=== PATIENT | male | born 1945 | race Caucasian/White ===

== ENCOUNTER 2019-12-04 21:50 | Outpatient (CLI) | payer MEDICARE, BC | END 2019-12-04 21:51 | disposition short-term general hospital (02) | LOC: EMS 21:50 | PROVIDERS: ATTEND Surgery | DX: R55 Syncope and collapse (principal); R46.4 Slowness and poor responsiveness | CPT/HCPCS: A0425; A0427 ==

== ENCOUNTER 2020-04-27 21:54 | Outpatient (CLI) | payer MEDICARE, BC | END 2020-04-27 21:55 | disposition EMS.NT | LOC: EMS 21:54 | PROVIDERS: ATTEND Surgery | DX: R55 Syncope and collapse (principal) ==

== ENCOUNTER 2021-09-25 09:17 | Day surgery (SDC) | payer MEDICARE, BC, OTHER ==
[~2021-09-25 09:17] MED LIST: CYCLOPENTOLATE 1% OPHTH DROPS 2 ML ONE; KETOROLAC 0.45% OPHTH DROPS ONE; PHENYLEPHRINE 2.5% OPHTH 2 ML DROPS ONE; PROPARACAINE 0.5% OPHTH DROPS 15 ML ONE
[2021-09-25] MEDS ORDERED: LACTATED RINGERS 1,000 ML IV ONE (10:42)
--- NOTE | 2021-09-25 11:25 | ANESTHESIA ---
Pre-Anesthesia VS, & Labs - Diagnosis left eye senile combined cataract - Procedure left eye cataract extraction with IOL implant Vital Signs: Temp Pulse Resp BP Pulse Ox 36.5 C 86 16 114/68 98 09/25/21 10:43 09/25/21 10:43 09/25/21 10:43 09/25/21 10:43 09/25/21 10:43 Height: 5 ft 10 in Weight (kg): 87 kg Body Mass Index: 27.5 BMI Classification: Overweight - NPO >8 hours Home Medications and Allergies Home Medications: Ambulatory Orders Bimatoprost 0.01% Ophth Dops [Lumigan 0.01% Ophth Drops] 1 drops EACHEYE DAILY 09/25/21 Brimonidine 0.15% Ophth Drops [Alphagan P 0.15% Ophth Drops] 1 drops OPTH BID 09/25/21 Lisinopril [Zestril] 10 mg PO DAILY 09/25/21 Bimatoprost 0.01% Ophth Dops [Lumigan 0.01% Ophth Drops] 1 drops EACHEYE DAILY 09/25/21 Brimonidine 0.15% Ophth Drops [Alphagan P 0.15% Ophth Drops] 1 drops OPTH BID 09/25/21 Lisinopril [Zestril] 10 mg PO DAILY 09/25/21 Allergies/Adverse Reactions: Allergies Allergy/AdvReac Type Severity Reaction Status Date / Time [id number] Reductase AdvReac Unknown Verified 09/25/21 11:25 Inhibitor Anes History & Medical History - Anesthetic History Anesthesia Complications: reports: No previous complications - Medical History Cardiovascular: reports: Hypertension Pulmonary: reports: None Gastrointestinal: reports: None Urinary: reports: None 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) Musculoskeletal: reports: None Endocrine/Autoimmune: reports: None Blood Disorders: reports: None Skin: reports: Eczema Smoking Status: Never smoker Psychosocial: reports: Depression, Anxiety History of Cancer?: No - Surgical History General: reports: Colonoscopy, Other (hernia repair) Eyes Ears Nose Throat (EENT): reports: Tonsil/Adenoidectomy Exam General: Alert, Oriented x3, Cooperative, No acute distress Dental: WNL Mouth Openin Fingerbreadth Neck Mobility: Normal Mallampati classification: III Thyromental Distance: 4-6 cm Mental/Cognitive Status: Alert/Oriented X3, Normal for patient Plan Anesthesia Type: MAC Consent for Procedure(s) Verified and Reviewed: Yes Code Status: Attempt Resuscitation ASA classification: 2-Mild systemic disease Is this case an emergency?: No
[2021-09-25] MEDS ORDERED: BRIMONIDINE 0.2% OPHTH DROPS 5 ML OPTH ONE (12:08)
[2021-09-25] MEDS ORDERED: EPINEPHrine 1 MG/ML AMP IR ONE (12:08)
[2021-09-25] MEDS ORDERED: TIMOLOL 0.5% OPHTH DROPS OPTH ONE (12:08)
[2021-09-25] MEDS ORDERED: TRIAMCIN/MOXIFLOX OPHTHALMIC 0.6 ML VIAL IO ONE ×2 (12:09→12:37)
[2021-09-25] MEDS ORDERED: BSS/LIDOCAINE/EPINEPHRINE 1 ML SYRINGE IO ONE (12:09)
[2021-09-25] MEDS ORDERED: MIDAZOLAM 2 MG/2 ML VIAL ONE (12:09)
[2021-09-25] MEDS ORDERED: VANCOMYCIN OPHTHALMI 8MG/0.8ML 8 MG/0.8 ML SYRINGE IO ONE (12:10)
[2021-09-25] MEDS ORDERED: PROPARACAINE 0.5% OPHTH DROPS 15 ML EACHEYE ONE (12:10)
--- NOTE | 2021-09-25 12:19 | OPERATIVE REPORT ---
Operative Report - Other Other Information/Narrative: Date of Surgery: 09/25/21 Preop Dx: Visually significant cataract left eye. This was the first cataract surgery. Postop Dx: Same Procedure: Phacoemulsification with posterior chamber intraocular lens implant left eye Surgeon: Dr. Eloy Smiley Anesthesia: Monitored anesthesia care Complications: None Operative Indications: This is a 76-year-old M with progressive vision loss in the left eye due to 3+ nuclear sclerotic, 1-2+ cortical, and trace posterior subcapsular cataract. Best corrected visual acuity was 20/50 with glare to 20/100 vision in the left eye. Indications for surgery were: - Overall decrease in vision - Difficulty seeing words on a computer screen - Difficulty reading - Difficulty seeing words, closed captions, or game scores on TV - Difficulty seeing street signs - Difficulty driving in low light or at night - Difficulty driving at night because of headlights from other vehicles - Difficulty with glare or bright lights in any situation - Decreased acuity with firearms The patient was consented at length concerning the risks and benefits of cataract surgery after which the patient expressed a desire to proceed with surgery. Operative Procedure: The patient was taken into OR#3 and placed under monitored anesthesia care. A surgical time-out was conducted confirming correct patient, correct procedure, and correct surgical site. The patient was given topical anesthesia and then prepped and draped in the usual sterile fashion. The eye was entered at the 6 and 3 oclock positions. Intracameral Shugarcaine was injected into the anterior chamber followed by a dispersive viscoelastic. A continuous-tear curvilinear capsulorhexis was performed. The nucleus was hydrodissected and phacoemulsified. The cortex was evacuated using automated infusion and aspiration. A cohesive viscoelastic was injected into the capsular bag and a 22.0 diopter intraocular lens was inserted into the bag. Infusion and aspiration were used to evacuate the viscoelastic materials from the eye. The wounds were hydrated and the eye inflated to physiologic pressure using balanced salt solution. Approximately 0.25ml of a mixture of triamcinolone and moxifloxacin was injected trans-sclerally into the vitreous in the inferote mporal quadrant using a 30 gauge cannula. An additional 0.55ml of a mixture of triamcinolone, moxifloxacin, and vancomycin was injected subconjunctivally in the superior quadrant for infection and inflammation prophylaxis. Wound integrity was checked with Weck-Nellie sponges. The patient was taken from the operating room in good condition and given post-op instructions.
[2021-09-25] MEDS ORDERED: LACTATED RINGERS 600 ML IV ONE (12:20)
[2021-09-25] MEDS ORDERED: fentaNYL 100 MCG/2 ML VIAL ONE (12:24)
[2021-09-25 12:31] VITALS: BP 127/59
--- NOTE | 2021-09-25 12:33 | ANESTHESIA POST OP EVALUATION ---
Anesthesia Post Eval - Post Anesthesia Eval Vitals: Last Vital Signs Temp 37.1 C 09/25/21 12:17 Pulse 70 09/25/21 12:30 Resp 16 09/25/21 12:30 BP 127/59 L 09/25/21 12:30 Pulse Ox 96 09/25/21 12:30 CV Function Including HR & BP: Stable Pain Control: Satisfactory Nausea & Vomiting: Negative Mental Status: Baseline Respiratory Status: Airway Patent Hydration Status: Satisfactory Anesthesia Complications: None
[2021-09-25] MEDS ORDERED: TIMOLOL 0.5% OPHTH DROPS ONE (12:37)
[2021-09-25] MEDS ORDERED: BSS/LIDOCAINE/EPINEPHRINE 1 ML VIAL ONE (12:37)
[2021-09-25] MEDS ORDERED: BRIMONIDINE 0.2% OPHTH DROPS 5 ML ONE (12:37)
== END 2021-09-25 09:18 | disposition home or self-care (01) ==
LOC: SDS 09:17
PROVIDERS: ATTEND Ophthalmology
DX: H25.812 Combined forms of age-related cataract, left eye (principal); I10 Essential (primary) hypertension; Z79.899 Other long term (current) drug therapy
CPT/HCPCS: 66984; A9270; J3490; J7120

== ENCOUNTER 2022-11-19 07:22 | Day surgery (SDC) | payer MEDICARE, BC, OTHER ==
--- NOTE | 2022-11-19 07:14 | ANESTHESIA ---
Pre-Anesthesia VS, & Labs - Diagnosis R senile combined cataract - Procedure R extraction cataract w/IOL Height: 5 ft 10 in - NPO >8 hours - Lab Results Lab results reviewed: Yes Home Medications and Allergies Home Medications: Ambulatory Orders Apixaban [Eliquis] 0 mg PO BID 11/18/22 Gabapentin [Neurontin] 300 mg PO HS 11/18/22 Nitroglycerin [Nitrostat] 0.4 mg SL ONCE 11/18/22 dilTIAZem HCL [Diltiazem 24Hr ER (LA)] 120 mg PO DAILY 11/18/22 Bimatoprost 0.01% Ophth Dops [Lumigan 0.01% Ophth Drops] 1 drops EACHEYE DAILY 09/25/21 Brimonidine 0.15% Ophth Drops [Alphagan P 0.15% Ophth Drops] 1 drops OPTH BID 09/25/21 Lisinopril [Zestril] 10 mg PO BID 09/25/21 Apixaban [Eliquis] 0 mg PO BID 11/18/22 Gabapentin [Neurontin] 300 mg PO HS 11/18/22 Nitroglycerin [Nitrostat] 0.4 mg SL ONCE 11/18/22 dilTIAZem HCL [Diltiazem 24Hr ER (LA)] 120 mg PO DAILY 11/18/22 Allergies/Adverse Reactions: Allergies Allergy/AdvReac Type Severity Reaction Status Date / Time [id number] Reductase AdvReac Unknown Verified 09/25/21 11:25 Inhibitor Anes History & Medical History - Anesthetic History Anesthesia Complications: reports: No previous complications Family history of Anesthesia Complications: Denies Family history of Malignant Hyperthermia: Denies - Medical History Cardiovascular: reports: Hypertension Pulmonary: reports: None Gastrointestinal: reports: None Urinary: reports: None 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) Musculoskeletal: reports: None Endocrine/Autoimmune: reports: None Blood Disorders: reports: None Skin: reports: Eczema Smoking Status: Never smoker - Surgical History General: reports: Colonoscopy, Other Eyes Ears Nose Throat (EENT): reports: Cataracts, Tonsil/Adenoidectomy Exam General: Alert, Oriented x3, Cooperative Dental: WNL Mouth Openin Fingerbreadth Neck Mobility: Normal Mallampati classification: II Thyromental Distance: 4-6 cm Respiratory: Lungs clear, Normal breath sounds Cardiovascular: Regular rate Neurological: Normal speech Mental/Cognitive Status: Alert/Oriented X3, Normal for patient Cognitive Status: Within normal limits Plan Anesthesia Type: MAC Consent for Procedure(s) Verified and Reviewed: Yes Code Status: Attempt Resuscitation ASA classification: 2-Mild systemic disease Is this case an emergency?: No
[2022-11-19] MEDS ORDERED: LACTATED RINGERS 1,000 ML IV ONE (07:23)
[2022-11-19] MEDS ORDERED: MIDAZOLAM 2 MG/2 ML VIAL ONE (07:45)
[2022-11-19] MEDS ORDERED: TRIAMCIN/MOXIFLOX OPHTHALMIC 0.6 ML VIAL IO ONE ×2 (07:58→08:04)
[2022-11-19] MEDS ORDERED: VANCOMYCIN OPHTH (TOPICAL) 10 MG/ML SYRINGE ONE (07:58)
[2022-11-19] MEDS ORDERED: TIMOLOL 0.5% OPHTH DROPS ONE (07:58)
[2022-11-19] MEDS ORDERED: BSS/LIDOCAINE/EPINEPHRINE 1 ML VIAL ONE (07:58)
[2022-11-19] MEDS ORDERED: EPINEPHrine 1 MG/ML AMP ONE (07:58)
[2022-11-19] MEDS ORDERED: BRIMONIDINE 0.2% OPHTH DROPS 5 ML ONE (07:58)
[2022-11-19] MEDS ORDERED: BRIMONIDINE 0.2% OPHTH DROPS 5 ML OPTH ONE (08:03)
[2022-11-19] MEDS ORDERED: EPINEPHrine 1 MG/ML AMP IR ONE (08:03)
[2022-11-19] MEDS ORDERED: TIMOLOL 0.5% OPHTH DROPS OPTH ONE (08:04)
[2022-11-19] MEDS ORDERED: BSS/LIDOCAINE/EPINEPHRINE 1 ML SYRINGE IO ONE (08:04)
[2022-11-19] MEDS ORDERED: PROPARACAINE 0.5% OPHTH DROPS 15 ML EACHEYE ONE (08:05)
[2022-11-19] MEDS ORDERED: VANCOMYCIN OPHTH (TOPICAL) 10 MG/ML SYRINGE TOP ONE (08:05)
[2022-11-19] MEDS ORDERED: LACTATED RINGERS 700 ML IV ONE (08:28)
--- NOTE | 2022-11-19 08:32 | OPERATIVE REPORT ---
Operative Report - Other Other Information/Narrative: Date of Surgery: 11/19/22 Preop Dx: Visually significant cataract right eye. Cataract surgery was performed in the left eye on [id number]. Postop Dx: Same Procedure: Phacoemulsification with posterior chamber intraocular lens implant right eye Surgeon: Dr. Eloy Smiley Anesthesia: Monitored anesthesia care Complications: None Operative Indications: This is a 77-year-old M with progressive vision loss in the right eye due to 4+ nuclear sclerotic, 2+ cortical, and vacuolar cataract. Best corrected visual acuity was 20/40 with glare to 20/125 vision in the right eye. Indications for surgery were: - Overall decrease in vision - Difficulty seeing words on a computer screen - Difficulty reading - Difficulty seeing words, closed captions, or game scores on TV - Difficulty seeing street signs - Difficulty driving in low light or at night - Difficulty driving at night because of headlights from other vehicles - Difficulty with glare or bright lights in any situation The patient was consented at length concerning the risks and benefits of cataract surgery after which the patient expressed a desire to proceed with surgery. Operative Procedure: The patient was taken into OR#3 and placed under monitored anesthesia care. A surgical time-out was conducted confirming correct patient, correct procedure, and correct surgical site. The patient was given topical anesthesia and then prepped and draped in the usual sterile fashion. The eye was entered at the 6 and 3 oclock positions. Intracameral Shugarcaine was injected into the anterior chamber followed by a dispersive viscoelastic. A continuous-tear curvilinear capsulorhexis was performed. The nucleus was hydrodissected and phacoemulsified. The cortex was evacuated using automated infusion and aspiration. A cohesive viscoelastic was injected into the capsular bag and a 21.0 diopter intraocular lens was inserted into the bag. Infusion and aspiration were used to evacuate the viscoelastic materials from the eye. The wounds were hydrated and the eye inflated to physiologic pressure using balanced salt solution. Approximately 0.25ml of a mixture of triamcinolone and moxifloxacin was injected trans-sclerally into the vitreous in the inferotemporal quadrant using a 30 gauge cannula. An additional 0.25ml of a mixture of triamcinolone and moxifloxacin was injected subconjunctivally in the superior quadrant for infection and inflammation prophylaxis. Wound integrity was checked with Weck-Nellie sponges. The patient was taken from the operating room in good condition and given post-op instructions.
--- NOTE | 2022-11-19 08:34 | ANESTHESIA POST OP EVALUATION ---
Anesthesia Post Eval - Post Anesthesia Eval Vitals: Last Vital Signs Temp 36.4 C L 11/19/22 08:25 Pulse 76 11/19/22 08:25 Resp 16 11/19/22 08:25 BP 115/60 11/19/22 08:25 Pulse Ox 98 11/19/22 08:25 O2 Flow Rate CV Function Including HR & BP: Stable Pain Control: Satisfactory Nausea & Vomiting: Negative Mental Status: Baseline Respiratory Status: Airway Patent Hydration Status: Satisfactory Anesthesia Complications: None
[2022-11-19 08:51] VITALS: BP 107/67
== END 2022-11-19 07:23 | disposition home or self-care (01) ==
LOC: SDS 07:22
PROVIDERS: ATTEND Ophthalmology
DX: H25.811 Combined forms of age-related cataract, right eye (principal); I10 Essential (primary) hypertension; Z98.42 Cataract extraction status, left eye
CPT/HCPCS: 66984; A9270; J3490; J7120

== ENCOUNTER 2023-01-30 10:07 | Outpatient (CLI) | payer MEDICARE, BC, OTHER | END 2023-01-30 23:59 | disposition critical access hospital (66) | LOC: EMS 10:07 | DX: R10.30 Lower abdominal pain, unspecified (principal) | CPT/HCPCS: A0425; A0429 ==

== ENCOUNTER 2023-01-30 10:29 | Inpatient (IN) | payer MEDICARE, BC, OTHER ==
[2023-01-30 11:19] LABS: BASOPHILS % (AUTO) 0.3 %; EOSINOPHILS # (AUTO) 0.1 10^3/uL (0.0-0.7); EOSINOPHILS % (AUTO) 0.8 %; HCT - HEMATOCRIT 41.2 % (42.0-52.0); HGB - HEMOGLOBIN 13.9 g/dL (14.0-18.0); LYMPHOCYTES # (AUTO) 1.2 10^3/uL (1.5-3.5); LYMPHOCYTES % (AUTO) 10.5 %; MEAN CORPUSCULAR HEMOGLOBIN 30.7 pg (27.0-31.0); MEAN CORPUSCULAR HGB CONC 33.7 g/dL (32.0-36.0); MEAN CORPUSCULAR VOLUME 90.9 fL (80.0-94.0); MEAN PLATELET VOLUME 9.6 fL (7.4-11.4); MONOCYTES # (AUTO) 0.8 10^3/uL (0.0-1.0); NEUTROPHILS # (AUTO) 9.3 10^3/uL (1.5-6.6); NEUTROPHILS % (AUTO) 81.1 %; PLT - PLATELET COUNT 224 10^3/uL (130-450); RED BLOOD COUNT 4.53 10^6/uL (4.70-6.10); RED CELL DISTRIBUTION WIDTH 12.3 % (12.0-15.0); WHITE BLOOD COUNT 11.5 x10^3/uL (4.8-10.8)
[2023-01-30 11:33] LABS: ALBUMIN/GLOBULIN RATIO 1.4 (1.0-2.2); BILIRUBIN,TOTAL 0.8 mg/dL (0.2-1.0); CALCIUM 9.2 mg/dL (8.5-10.3); CREATININE 1.1 mg/dL (0.6-1.3); TOTAL PROTEIN 6.8 g/dL (6.4-8.9)
[2023-01-30 11:39] LABS: TROPONIN I HIGH SENSITIVITY 5.4 ng/L (2.3-19.7)
--- NOTE | 2023-01-30 11:43 | ED Physician Documentation ---
PD HPI ABD PAIN - Stated complaint Stated Complaint: LIGHT HEADED/ABD PX - Chief complaint Chief Complaint: Abd Pain - History obtained from History obtained from: Patient, Family - Additional information Additional information: This is a 77-year-old male with a past medical history of hypertension as well as atrial fibrillation on Eliquis who presents with 4 days of lower abdominal discomfort. On the initial day of his symptoms, he also had a syncopal episode that evening. The patient states that he went to use the bathroom and he later woke up on the floor. He is not sure what happened. His found him and he was feeling okay at that time so he went back to bed. He had no chest pain or difficulty breathing and he has not had any recurrent episodes of syncope or near syncope. Over the last several days, he has continued to have lower abdominal pain, bloating, nausea and poor p.o. intake. He has not had any vomiting or diarrhea, no constipation, no urinary symptoms. He has not had a fever. He last ate yesterday, ate a quite bland diet, plain raisin toast in the morning, Cheerios and afternoon, and playing grapes in the evening as he did not feel like he could tolerate anything else. He last had a bowel movement yesterday, it was soft so this is not uncommon for him, he denies any constipation or straining. He denies any atypical food or water sources, he did travel to [place] though that has been several months ago and he had no GI issues while he was there. He does have a history of a hernia repair as a child but no other abdominal surgeries. Review of Systems Constitutional: reports: Reviewed and negative Eyes: reports: Reviewed and negative Ears: reports: Reviewed and negative Nose: reports: Reviewed and negative Throat: reports: Reviewed and negative Cardiac: reports: Reviewed and negative Respiratory: reports: Reviewed and negative GI: reports: Abdominal Pain, Abdominal Swelling, Nausea. denies: Vomiting, Constipation, Diarrhea, Hematemesis, Bloody / black stool : reports: Reviewed and negative Skin: reports: Reviewed and negative Musculoskeletal: reports: Reviewed and negative Neurologic: reports: Generalized weakness, Syncope. denies: Focal weakness, Numbness, Difficulty speaking, Near syncope, Seizure, Confused, Altered mental status, Unresponsive, Headache, Head injury Psychiatric: reports: Reviewed and negative Endocrine: reports: Reviewed and negative PD PAST MEDICAL HISTORY - Past Medical History Past Medical History: Yes Cardiovascular: Hypertension, Atrial fibrillation Respiratory: None Neuro: Other Endocrine/Autoimmune: None GI: None : None HEENT: Chronic vision loss, Glaucoma Musculoskeletal: None Derm: Eczema - Past Surgical History General: Colonoscopy, Other HEENT: Cataracts, Tonsil/Adenoidectomy - Present Medications Home Medications: Ambulatory Orders Medication Instructions Recorded Confirmed Bimatoprost 0.01% Ophth Dops 1 drops EACHEYE DAILY 09/25/21 11/19/22 [Lumigan 0.01% Ophth Drops] Brimonidine 0.15% Ophth Drops 1 drops OPTH BID 09/25/21 11/18/22 [Alphagan P 0.15% Ophth Drops] Lisinopril [Zestril] 10 mg PO BID 09/25/21 11/19/22 Apixaban [Eliquis] 0 mg PO BID 11/18/22 11/19/22 Gabapentin [Neurontin] 300 mg PO HS 11/18/22 11/18/22 Nitroglycerin [Nitrostat] 0.4 mg SL ONCE 11/18/22 11/19/22 dilTIAZem HCL [Diltiazem 24Hr ER 120 mg PO DAILY 11/18/22 11/18/22 (LA)] - Allergies Allergies/Adverse Reactions: Allergies Allergy/AdvReac Type Severity Reaction Status Date / Time [id number] Reductase AdvReac Unknown Verified 09/25/21 11:25 Inhibitor - Social History Does the pt smoke?: No Smoking Status: Never smoker PD ED PE NORMAL - Vitals Vital signs reviewed: Yes - General General: Alert and oriented X 3, No acute distress, Well developed/nourished - HEENT HEENT: Atraumatic, Moist mucous membranes, Pharynx benign - Neck Neck: Supple, no meningeal sign, No JVD - Cardiac Cardiac: RRR, No murmur, No gallop, No rub, Strong equal pulses - Respiratory Respiratory: No respiratory distress, Clear bilaterally - Abdomen Abdomen: Other (Lower abdominal tenderness, no other abdominal tenderness. 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 Relevant findings are: Rate: Rate (enter#) (75) Rhythm: NSR Mcdaniel: Normal Intervals: Normal FL QRS: Normal Ischemia: ST elevation c/w repol Compare to prior EKG: Old EKG unavailable Computer interpretation: Agree with computer - Labs Labs: Laboratory Tests 01/30/23 01/30/23 01/30/23 11:05 11:05 13:24 WBC 11.5 H RBC 4.53 L Hgb 13.9 L Hct 41.2 L MCV 90.9 MCH 30.7 MCHC 33.7 RDW 12.3 Plt Count 224 MPV 9.6 Neut # (Auto) 9.3 H Lymph # (Auto) 1.2 L [place] # (Auto) 0.8 Eos # (Auto) 0.1 Baso # (Auto) 0.0 Absolute Nucleated RBC 0.00 Nucleated RBC % 0.0 Sodium 132 L Potassium 4.0 Chloride 101 Carbon Dioxide 28 Anion Gap 3.0 L BUN 11 Creatinine 1.1 Estimated GFR (MDRD) 65 L Glucose 104 Calcium 9.2 Total Bilirubin 0.8 AST 20 ALT 21 Alkaline Phosphatase 62 Troponin I High Sens 5.4 Total Protein 6.8 Albumin 4.0 Globulin 2.8 Albumin/Globulin Ratio 1.4 Lipase 23 Urine Color YELLOW Urine Clarity CLEAR Urine pH 6.5 Ur Specific [place] <=1.005 Urine Protein NEGATIVE Urine Glucose (UA) NEGATIVE Urine Ketones 15 H Urine Occult Blood NEGATIVE Urine Nitrite NEGATIVE Urine Bilirubin NEGATIVE Urine Urobilinogen 0.2 (NORMAL) Ur Leukocyte Esterase NEGATIVE Ur Microscopic Review NOT INDICATED Urine Culture Comments NOT INDICATED 01/30/23 13:25 WBC RBC Hgb Hct MCV MCH MCHC RDW Plt Count MPV Neut # (Auto) Lymph # (Auto) [place] # (Auto) Eos # (Auto) Baso # (Auto) Absolute Nucleated RBC Nucleated RBC % Sodium Potassium Chloride Carbon Dioxide Anion Gap BUN Creatinine Estimated GFR (MDRD) Glucose Calcium Total Bilirubin AST ALT Alkaline Phosphatase Troponin I High Sens 5.4 Total Protein Albumin Globulin Albumin/Globulin Ratio Lipase Urine Color Urine Clarity Urine pH Ur Specific [place] Urine Protein Urine Glucose (UA) Urine Ketones Urine Occult Blood Urine Nitrite Urine Bilirubin Urine Urobilinogen Ur Leukocyte Esterase Ur Microscopic Review Urine Culture Comments - Rads (name of study) No standard instances Relevant Findings:: Final report received PD Medical Decision Making - ED course Complexity details: reviewed results, re-evaluated patient, considered differential, d/w patient, d/w family, d/w economic consultant (Dr. Amaya) ED course: 77-year-old male presented with lower abdominal pain for the last 4 days. On arrival, he has stable vital signs and appears in no acute distress but does have some lower abdominal tenderness to palpation mild distention, but active bowel tones. We obtain labs to evaluate for possible colitis or diverticulitis or small bowel obstruction or UTI causing his symptoms. Labs are generally r eassuring, he has a white blood cell count of 11.5, hemoglobin of 13.9, sodium 132 and otherwise stable chemistry panel. His urinalysis is negative for infection. Patient continued to have discomfort therefore I recommended a CT to evaluate for other possible sources of his pain. CT reveals a small bowel obstruction with a transition point in the distal small bowel. I discussed these findings with patient and recommended bowel rest, and recommended that we place an NG tube and admit the patient for observation. The patient strongly resisted having NG tube stating that he had a severe gag reflex and requested that he be sedated for this procedure. We therefore have given him pain medication and previously for abdominal pain and also gave him 1 mg of Ativan in order to place an NG tube which is pending at this time. I discussed the case with Dr. Amaya, the on-call surgeon, who recommended that we admit the patient to the hospitalist service and he will consult and it plans to see the patient later today. Recommended IV fluids, bowel rest, and NG tube decompression. I have spoken with the hospitalist, Dr. Montenegro, and she has very kindly excepted this patient to her service for observation of a small bowel obstruction. Patient and updated on plans and agreeable to admission. Departure - Departure Disposition: ED Place in Observation Clinical Impression: Small bowel obstruction Discharge Date/Time: 01/30/23 14:50
[2023-01-30] MEDS ORDERED: ONDANSETRON 4 MG/2 ML VIAL IVP STA (12:07)
[2023-01-30] MEDS ORDERED: SODIUM CHLORIDE 0.9% 1,000 ML IV STA (12:07)
[2023-01-30] MEDS ORDERED: MORPHINE 2 MG/ML CARPUJECT IVP STA (13:07)
[2023-01-30] MEDS ORDERED: iohexoL-300 100 ML VIAL IVP ONE (13:24)
[2023-01-30 13:32] LABS: BILIRUBIN,URINE NEGATIVE (NEGATIVE); GLUCOSE, URINE (UA) NEGATIVE (NEGATIVE); KETONES,URINE (UA) 15 mg/dL (NEGATIVE); LEUKOCYTE ESTERASE, URINE NEGATIVE (NEGATIVE); NITRITE,URINE NEGATIVE (NEGATIVE); OCCULT BLOOD,URINE NEGATIVE (NEGATIVE); PH,URINE 6.5 PH (5.0-7.5); PROTEIN,URINE NEGATIVE (NEGATIVE); UROBILINOGEN,URINE 0.2 (NORMAL) E.U./dL (NORMAL)
[2023-01-30 13:33] LABS: CLARITY,URINE CLEAR (CLEAR)
--- NOTE | 2023-01-30 13:43 | CT Report ---
PROCEDURE: ABDOMEN/PELVIS W INDICATIONS: lower abd pain, colitis or diverticulitis? CONTRAST: 100ml omni 300 TECHNIQUE: After the administration of contrast, 5 mm thick sections acquired from the diaphragms to the symphys is. 5 mm thick coronal and sagittal reformats were acquired. For radiation dose reduction, the foll owing was used: automated exposure control, adjustment of mA and/or kV according to patient size. COMPARISON: 03/21/2012 FINDINGS: Image quality: Excellent. Lung bases and heart: Unremarkable. Liver: No solid mass. Gallbladder and biliary tree: 1 cm gallstone. No evidence of cholecystitis. Spleen: No splenomegaly. Pancreas: No pancreatic ductal dilation. Adrenals: No adrenal nodule. Kidneys and ureters: No hydronephrosis. No renal cystic lesion which requires follow up. No solid mas s. Simple cyst of the inferior pole of the right kidney. Bowel and peritoneum: The distal esophagus is normal. The stomach is distended with fluid and air. Th e duodenum, jejunum, and ileum are distended measuring up to 3.5 cm in diameter with air-fluid levels consistent with small bowel obstruction. Transition point is indeterminate but likely distal. The la rge bowel has a normal caliber with diverticulosis in the sigmoid colon. No evidence of acute diverti culitis. No free air or free fluid. Lymph nodes: No central or retroperitoneal adenopathy. Vessels: No infrarenal aortic aneurysm. PELVIS Reproductive organs: Unremarkable. Bladder: No abnormal wall thickening, accounting for underdistension. Pelvic lymph nodes: No pelvic adenopathy by size criteria. Bones: No aggressive osseous abnormality. Other: No significant ventral or inguinal hernia. IMPRESSION: Small bowel obstruction with a transition point in the distal small bowel. Reviewed by: Umesh Plascencia on 01/30/2023 1:41 PM PDT Approved by: Umesh Plascencia on 01/30/2023 1:41 PM PDT Station ID: [id number]
[2023-01-30] MEDS ORDERED: ONDANSETRON ODT 4 MG TABLET TL PRN (14:01)
[2023-01-30] MEDS ORDERED: MORPHINE 2 MG/ML CARPUJECT IVP PRN (14:01)
[2023-01-30] MEDS ORDERED: ONDANSETRON 4 MG/2 ML VIAL IVP PRN (14:01)
[2023-01-30] MEDS ORDERED: SODIUM CHLORIDE FLUSH 0.9% 10 ML SYRINGE IVP PRN (14:01)
[2023-01-30] MEDS ORDERED: LORazepam 2 MG/ML VIAL IVP STA (14:03)
[2023-01-30] MEDS ORDERED: ACETAMINOPHEN 1,000 MG/100 ML 1,000 MG/100 ML BAG IV PRN (14:04)
--- NOTE | 2023-01-30 14:09 | HISTORY & PHYSICAL EXAMINATION ---
Chief Complaint - Chief Complaint Chief Complaint: Abdominal pain for 4 days History of Present Illness - Admitted From Admitted From:: Home - History Obtained From Records Reviewed: [facility] History obtained from: [facility] Rachel Grigsby, Patient, and patient's Exam Limitations: None - History of Present Illness HPI Comment/Other: 77-year-old white male whose only past surgical history is that of a inguinal hernia repair when he was a child. Presents with less than a week of increasing abdominal pain, distention, nausea, anorexia. He is still passing gas, had a bowel movement yesterday. Last food was last night but he is eating less and less. He thought he just had a bug/stomach flu. When he was not getting any better he decided to come to the hospital. He denies chest pain, palpitations, shortness of breath. He denies fever, diaphoresis. No urgency, frequency, hematuria. No previous history of prostate problems or urinary obstruction. He does say that prior to this 4 days, however, he has been having diarrhea on a daily basis. Came from out of nowhere. He has had 2 previous colonoscopies. No polyps. He and his thought that it was either the flu bug or a diverticulosis issue and he had been changing to a bland diet and it was not working. No blood in the diarrhea.No weight changes, no change in appetite. In the emergency room temperature was 36.9. Heart rate 76. Blood pressure 124/78. Respirations 18. 96% on room air. He was an alert oriented white male. He is ambulating. Exam has him with a distended abdomen, hypoactive bowel sounds. Diffuse tenderness. CT of the abdomen and pelvis had a distended stomach with fluid and air. The duodenum, jejunum and ileum were also distended with air-fluid levels consistent with partial small bowel obstruction. Transition point indeterminate but likely distal. Large bowel was normal with diverticulosis in the sigmoid colon. No diverticulitis, no free air or free fluid. No adenopathy. Sodium is 132 otherwise CMP was normal. White cell count slightly elevated 11.5 with a hemoglobin of 13.9. He has no other previous CBCs to compare to. The ER provider discussed the case with general surgery, Dr. Amaya. He feels that this most likely will resolve without surgical intervention. He would like an NG placed, and the patient admitted to my service and he will consult. In discussing this with the ER provider I feel that is an appropriate request. And as such I will place the patient in observation. It is a partial small bowel obstruction in that he still passing gas, and no vomiting. He is followed by the [place] [facility], Ayla Self MD who is in [place]. Tele Tech is Joe Bardales for his chronic atrial fibrillation. And he sees a Dr. Longoria, [facility] neurology in [place] for postpolio syndro me symptoms. His postpolio symptoms consist of difficulty bringing up his left leg. Lifelong history of feeling like there is "a ashwini" shoved down his leg. Loss of balance. He has been losing functional mobility slowly but surely over the last few years. He starts panting now with prolonged physical exertion. He and his are trying to get his endurance up and they are up to 21 minutes with using a quad cane of nonstop movement. Nonstop movement could be anything such as standing, or walking in the house, or going to the grocery store. He is still able to feed himself, dress himself. He still drives a car since his right foot is unaffected. The only thing that is bothering him today is speech. He says that he can hear me, understand exactly what I am saying, but then processing it and getting it out of his mouth is difficult. He can see the word he wants to say, he could even write it down, but it comes out of his mouth the wrong way. 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 Mom is still alive at 98 and completely healthy. 1 brother, only sibling, at age 49 of heart attack. 3 children. 1 daughter was born sumi ture and only weighed 2-1/2 pounds. There is some residuals from premature but otherwise she has a PhD from [email or web address]. There are no other medical illnesses in his kids. Living arrangement: At home Living Situation: With spouse/s.o. Social History Notes: Born and raised in [place] because dad was a [place] man. 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 He is to his second for 31 years. He has 3 children with his first . He is in contact with his children and has close relationships with them. He used to smoke. Started teenage years. Quit about 30 years ago. Never smoked more than half a pack a day. Assuming he started smoking at 17 and stopped at 47 that was about 30 years of at most half a pack per day. He used to drink quite a bit when he was younger. Just gradually phased out of his life. No problems with alcohol abuse. Stop drinking completely 5 years ago. No special reason. No history of recreational substance abuse. - Substance History Use: Uses substance without health or social issues: NONE Abuse: Recurrent use of substance despite neg consequences: NONE Dependence: Experiences withdrawal or developed tolerances: NONE - POLST Patient has POLST: No POLST Status: Full Code Meds/Allgy - Home Medications Home Medications: Ambulatory Orders Medication Instructions Recorded Confirmed Bimatoprost 0.01% Ophth Dops 1 drops EACHEYE DAILY 09/25/21 11/19/22 [Lumigan 0.01% Ophth Drops] Brimonidine 0.15% Ophth Drops 1 drops OPTH BID 09/25/21 11/18/22 [Alphagan P 0.15% Ophth Drops] Lisinopril [Zestril] 10 mg PO BID 09/25/21 11/19/22 Apixaban [Eliquis] 0 mg PO BID 11/18/22 11/19/22 Gabapentin [Neurontin] 300 mg PO HS 11/18/22 11/18/22 Nitroglycerin [Nitrostat] 0.4 mg SL ONCE 11/18/22 11/19/22 dilTIAZem HCL [Diltiazem 24Hr ER 120 mg PO DAILY 11/18/22 11/18/22 (LA)] - Allergies Allergies/Adverse Reactions: Allergies Allergy/AdvReac Type Severity Reaction Status Date / Time [id number] Reductase AdvReac Unknown Verified 09/25/21 11:25 Inhibitor Review of Systems - Constitutional Constitutional: denies: Fatigue, Fever, Chills, Malaise, Poor appetite, Weight gain, Weight loss - Eyes Eyes: reports: Blurred vision, Vision loss, Corrective lenses. denies: Pain, Irritation, Amaurosis - Ears, Nose & Throat Ears, Nose & Throat: reports: Hearing loss. denies: Ear pain, Hearing aids, Tinnitus, Vertigo, Nasal pain, Nasal discharge, Postnasal drainage, Sore throat, Hoarseness - Cardiovascular Cariovascular: reports: Irregular heart rate, Palpitations, Exertional dyspnea, Decr. exercise tolerance. denies: Chest pain, Edema, Syncope - Respiratory Respiratory: reports: SOB with exertion. denies: Cough, Sputum production, Wheezing, Snoring, SOB at rest - Gastrointestinal Gastrointestinal: reports: Abdominal pain, Abdominal distention, Diarrhea, Change in bowel habits, Nausea, Vomiting. denies: Rectal bleeding, Black stools, Bloody stools, [place]do blood emesis - Genitourinary Genitourinary: denies: Dysuria, Frequency, Urgency, Hematuria, Incontinence, Flank pain - Musculoskeletal Musculoskeletal: reports: Muscle aches, Stiffness, Muscle weakness (Left leg). denies: Muscle pain, Back pain, Gout, Joint pain - Integumentary Integumentary: reports: Rash (Eczema). denies: Pruritis, Lesions - Neurological Neurological: reports: Pre-existing deficit, Abnormal gait (Pre-existing). denies: General weakness, Focal weakness, Headache, Dizziness, Slurred speech - Psychiatric Psychiatric: denies: Depression, Anxiety, Suicidal - Endocrine Endocrine: reports: Intolerance to cold (That started and is attributed to postpolio syndrome. He is to be a very hot person where he could not take much eat but now he cannot take much cold). denies: Polyuria, Polydypsia, Polyphagia - Hematologic/Lymphatic Hematologic/Lymphatic: denies: Anemia, Bruising, Petechiae Prior Level of Functionality: Walks with a quad cane. Does not need help with dressing or feeding. Still drives a car. But mobility and gait have been affected over the last few years and getting worse. and he are 6 steadily trying to work on that. Exam - Vital Signs Reviewed Vital Signs: Yes Vital Signs: Vital Signs x48h Temp Pulse Resp BP Pulse Ox 01/30/23 12:39 72 14 139/76 H 99 01/30/23 10:36 36.9 C 76 18 124/78 96 - Physical Exam General Appearance: positive: No acute distress, Alert, Other (Pedantic 5 foot 10 inch male, 84.5 kg, some flaking along the nasolabial fold, hairline. Able to process what I am saying but occasionally having word finding difficulties to get the right word out and it makes him Exasperated) Eyes Bilateral: positive: PERRL, EOMI ENT: positive: No signs of dehydration Neck: positive: No JVD. negative: Stiff neck Respiratory: positive: No respiratory distress. negative: Wheezes, Rales, Rhonchi Cardiovascular: positive: Irregularly irregular. negative: Tachycardia Peripheral Pulses: positive: 1+ Abdomen: positive: Other (Diffusely distended, NG in place, low intermittent suction. Mild diffuse tenderness. Reducible umbilical hernia. No masses, no fluid wave.) Back: negative: Nml inspection, CVA tenderness (R) Skin: positive: Color nml, Warm, Dry Extremities: positive: Full ROM, No pedal edema Neurologic/Psychiatric: positive: Oriented x3, CN's nml (2-12), Motor nml Conclusion/Plan - Problem List (1) Partial small bowel obstruction Conclusion/Plan: CAT scan does not show any evidence of tumor or enteritis. There is a vague transition point. Not well identified. He does not have a fever but he does have an elevated white cell count. At this time general surgery feels that expectant management is in order. Previous surgical history is that of a simple hernia repair. No other major surgeries. Plan: Observation status IV fluids at 100 cc an hour Zofran OTD and IV as needed Morphine 2 mg every 2 hours as needed for pain Daily plain film of the abdomen to assess for air-fluid levels Daily BMP and CBC. General surgery consult No antibiotics at this time no antibiotics at this time. (2) Chronic atrial fibrillation Conclusion/Plan: He is rate controlled in the 70s. He is also anticoagulated. He is going to be n.p.o. Plan: Change anticoagulation to Lovenox 80 mg SQ twice daily Change rate lowering drug to Cardizem 5 mg IV push 3 times daily. To be held f or a pulse less than 60 Resume his oral Cardizem and Eliquis when he is able to take p.o. (3) Hypertension Conclusion/Plan: Blood pressure currently stable. Controlled. Systolic is 124, 139. I am resuming the Cardizem but I will do it IV push to rate control. With this I think his blood pressures stay controlled. Qualifiers: Hypertension type: primary hypertension Qualified Code(s): I10 - Essential (primary) hypertension - Lab Results Lab results reviewed: Yes Fish Bones: 01/30/23 11:05 01/30/23 11:05 - Diagnostic Imaging Results Diagnostic Imaging Results: positive: Final report reviewed Diagnostic Imaging Results Comments: See description of CT report and HPI - EKG Results EKG Interpreted Independently: No Core Measures - Anticipated LOS I expect patient to be DC'd or transferred within 96 hours.: Yes - DVT/VTE - Prophylaxis VTE/DVT Prophylaxis med ordered at admit?: Yes
[2023-01-30] MEDS: SODIUM CHLORIDE FLUSH 0.9% 10 ML SYRINGE IVP SCH (16:15)
[2023-01-30] MEDS: SODIUM CHLORIDE 0.9% 1,000 ML IV SCH (16:15)
--- NOTE | 2023-01-30 16:37 | CONSULTATION NOTE ---
Referring Provider Consult Date: 01/30/23 Chief Complaint - Chief Complaint Chief Complaint: admitted with abdominal pain and nausea History of Present Illness - History Obtained From Records Reviewed: yes History obtained from: pt Exam Limitations: none - History of Present Illness HPI Comment/Other: few days of abdominal pain, nausea, bloating. 1 diarrheal stool yesterday. small flatus today. history of " diverticulitis " x 2 over 10 years ago. seen in ed today. ct ? distal small bowel obstruction. surgery consulted only prior surgery inguinal hernia surgery as a child. History - Past Medical History Cardiovascular: reports: Hypertension, Atrial fibrillation Respiratory: reports: None Neuro: reports: Other Endocrine/Autoimmune: reports: None GI: reports: None : reports: None HEENT: reports: Chronic vision loss, Glaucoma Psych: reports: None Musculoskeletal: reports: None Derm: reports: Eczema MRSA Hx?: No - Past Surgical History General: reports: Colonoscopy, Other HEENT: reports: Cataracts, Tonsil/Adenoidectomy - Family & Social History Living arrangement: At home Meds/Allgy - Home Medications Home Medications: Ambulatory Orders Medication Instructions Recorded Confirmed Bimatoprost 0.01% Ophth Dops 1 drops EACHEYE DAILY 09/25/21 11/19/22 [Lumigan 0.01% Ophth Drops] Brimonidine 0.15% Ophth Drops 1 drops OPTH BID 09/25/21 11/18/22 [Alphagan P 0.15% Ophth Drops] Lisinopril [Zestril] 10 mg PO BID 09/25/21 11/19/22 Apixaban [Eliquis] 0 mg PO BID 11/18/22 11/19/22 Gabapentin [Neurontin] 300 mg PO HS 11/18/22 11/18/22 Nitroglycerin [Nitrostat] 0.4 mg SL ONCE 11/18/22 11/19/22 dilTIAZem HCL [Diltiazem 24Hr ER 120 mg PO DAILY 11/18/22 11/18/22 (LA)] - Allergies Allergies/Adverse Reactions: Allergies Allergy/AdvReac Type Severity Reaction Status Date / Time [id number] Reductase AdvReac Unknown Verified 09/25/21 11:25 Inhibitor Review of Systems - Other Findings Other Findings: 10 pt ros as above otherwise unremarkable Exam - Vital Signs Vital Signs: Vital Signs x48h Temp Pulse Pulse Resp BP BP Pulse Ox 01/30/23 16:00 36.6 C 93 20 98 01/30/23 14:58 36.6 C 90 21 152/74 H 98 01/30/23 14:16 83 16 135/76 H 100 01/30/23 12:39 72 14 139/76 H 99 01/30/23 10:36 36.9 C 76 18 124/78 96 - Physical Exam General Appearance: positive: No acute distress, Alert Eyes Bilateral: positive: PERRL, EOMI ENT: positive: No signs of dehydration Neck: positive: No JVD, Trachea midline Respiratory: positive: No respiratory distress Cardiovascular: positive: Regular rate & rhythm Abdomen: positive: Other (minimal distension and tenderness ngt small amount. green 2 cm umbilical hernia without bowel present) Neurologic/Psychiatric: positive: Oriented x3 Conclusion and Plan - Lab Results Laboratory Results 01/30/23 13:25: Troponin I High Sens 5.4 01/30/23 13:24: Urine Color YELLOW, Urine Clarity CLEAR, Urine pH 6.5, Ur Specific [place] <=1.005, Urine Protein NEGATIVE, Urine Glucose (UA) NEGATIVE, Urine Ketones 15 H, Urine Occult Blood NEGATIVE, Urine Nitrite NEGATIVE, Urine Bilirubin NEGATIVE, Urine Urobilinogen 0.2 (NORMAL), Ur Leukocyte Esterase NEGATIVE, Ur Microscopic Review NOT INDICATED, Urine Culture Comments NOT INDICATED 01/30/23 11:05: Sodium 132 L, Potassium 4.0, Chloride 101, Carbon Dioxide 28, Anion Gap 3.0 L, BUN 11, Creatinine 1.1, Estimated GFR (MDRD) 65 L, Glucose 104, Calcium 9.2, Total Bilirubin 0.8, AST 20, ALT 21, Alkaline Phosphatase 62, Troponin I High Sens 5.4, Total Protein 6.8, Albumin 4.0, Globulin 2.8, Albumin/Globulin Ratio 1.4, Lipase 23 01/30/23 11:05: WBC 11.5 H, RBC 4.53 L, Hgb 13.9 L, Hct 41.2 L, MCV 90.9, MCH 30.7, MCHC 33.7, RDW 12.3, Plt Count 224, MPV 9.6, Neut # (Auto) 9.3 H, Lymph # (Auto) 1.2 L, [place] # (Auto) 0.8, Eos # (Auto) 0.1, Baso # (Auto) 0.0, Absolute Nucleated RBC 0.00, Nucleated RBC % 0.0 - Diagnostic Imaging Results Diagnostic Imaging Results: positive: Read independently (diffusely dilated small bowel to the cecum. umbilical hernia without small bowel 2012 ct [facility] hernia with small bowel in the umbilical hernia and no significant diverticulitis) - Diagnosis Diagnosis: diffusely dilated small bowel with mild nausea and abdominal pain - Plan Plan: agree with care and plan. we discussed he has an umbilical hernia and small bowel has been present in his hernia in the past. what to look for discussed. enteritis more likley than sbo. we discussed atleast 80% chance this will resolve without surgery and he should consider elective umbilical hernia repair. will follow.
[2023-01-30] MEDS: ENOXAPARIN 80 MG/0.8 ML SYRINGE SUBQ SCH (21:29)
[2023-01-30] MEDS: diltiaZEM INJ 5 MG/ML VIAL IVP SCH (21:30)
[2023-01-31] MEDS: SODIUM CHLORIDE FLUSH 0.9% 10 ML SYRINGE IVP SCH ×3 (00:04→17:13)
[2023-01-31] MEDS: SODIUM CHLORIDE 0.9% 1,000 ML IV SCH ×3 (01:05→20:31)
[2023-01-31 05:02] LABS: BASOPHILS % (AUTO) 0.4 %; EOSINOPHILS # (AUTO) 0.2 10^3/uL (0.0-0.7); EOSINOPHILS % (AUTO) 2.3 %; HCT - HEMATOCRIT 38.4 % (42.0-52.0); LYMPHOCYTES # (AUTO) 1.8 10^3/uL (1.5-3.5); MEAN CORPUSCULAR HGB CONC 33.9 g/dL (32.0-36.0); MEAN CORPUSCULAR VOLUME 91.4 fL (80.0-94.0); MEAN PLATELET VOLUME 9.7 fL (7.4-11.4); MONOCYTES # (AUTO) 0.7 10^3/uL (0.0-1.0); MONOCYTES % (AUTO) 8.8 %; NEUTROPHILS # (AUTO) 5.1 10^3/uL (1.5-6.6); NEUTROPHILS % (AUTO) 65.4 %; PLT - PLATELET COUNT 201 10^3/uL (130-450); RED CELL DISTRIBUTION WIDTH 12.5 % (12.0-15.0); WHITE BLOOD COUNT 7.9 x10^3/uL (4.8-10.8)
[2023-01-31 05:17] LABS: CALCIUM 8.6 mg/dL (8.5-10.3); CREATININE 0.9 mg/dL (0.6-1.3)
[2023-01-31] MEDS: diltiaZEM INJ 5 MG/ML VIAL IVP SCH ×3 (06:01→20:31)
[2023-01-31] MEDS: ENOXAPARIN 80 MG/0.8 ML SYRINGE SUBQ SCH (08:36)
[2023-01-31] MEDS ORDERED: ENOXAPARIN 40 MG/0.4 ML SYRINGE SUBQ SCH (09:00)
--- NOTE | 2023-01-31 09:01 | PROVIDER PROGRESS NOTE ---
Progress Note General Surgery Morning Rounds Note Hospital Day 2 Assessment: 1) SBO vs Ileus - No bowel activity since admission. No clinical, lab or image evidence of ischemic intestine. patient and have a trip to [place] planned for this Wednesday. Plan: 1) SBFT gastrografin challenge. We may be able to resolve the ileus a bit more quickly 2) Continue NGT 3) Ambulate with assistance 4) KUB at 1600 5) Check Mg/Phos today S: No emesis or nausea, no flatus or BM; Minimal abdominal pain O: VSS; NGT output - 300 ml yesterday; 200 ml today thus far. HEENT - normal - NGT in place and functional Lungs clear HEART - NSR (2/6 THONG) Abdomen - soft, non-tender, minimal distension; active BS Pain Level: 2 Labs: WBC 7.9; H&H 13.0/38.4; K 4; Cr 0.9; Glu 84 Images: CT Abd/Pelvis - 01/30/23 Dilated gastric lumen and small bowel with air and fluid. No definite transition point seen. Air and stool in colon. All images reviewed by me - STEVEN Memo Moore MD, FACS General Surgery Service [phone]
[2023-01-31 09:56] LABS: MAGNESIUM 1.8 mg/dL (1.7-2.3); PHOSPHORUS 3.2 mg/dL (3.7-7.2)
--- NOTE | 2023-01-31 10:29 | PROVIDER PROGRESS NOTE ---
Progress Note January 31, 2023 10:30 AM No flatus or stool since yesterday. Has about 400 cc out overnight and his NG. Yesterday, had gone over upper GI, lower GI anatomy. What a small bowel obstruction was. What it meant to be partial versus not partial. He remembered some of it but not all of it and asked me to repeat all of this again today. So went over the lesson with he and his again. Surgery has seen the patient and has requested a Gastrografin challenge. Active Medications Diltiazem HCl (Diltiazem Inj 5 Mg/Ml Vial) 5 mg IVP TID [facility] Last Admin: 01/31/23 06:01 Dose: 5 mg Enoxaparin Sodium (Enoxaparin 80 Mg/0.8 Ml Syringe) 80 mg SUBQ BID [facility] Last Admin: 01/31/23 08:36 Dose: 80 mg Sodium Chloride (Normal Saline 0.9%) 1,000 mls @ 100 mls/hr IV .Q10H [facility] Last Admin: 01/31/23 01:05 Dose: 100 mls/hr Acetaminophen (Acetaminophen) 1,000 mg in 100 mls @ 400 mls/hr IV Q6HR PRN PRN Reason: Moderate Pain (Level 4-6) Last Infusion: 01/30/23 22:15 Dose: Infused Morphine Sulfate (Morphine 2 Mg/Ml Carpuject) 2 mg IVP Q2HR PRN PRN Reason: Pain 8 to 10 Ondansetron HCl (Ondansetron Odt 4 Mg Tablet) 4 mg TL Q6HR PRN PRN Reason: Nausea / Vomiting Ondansetron HCl (Ondansetron 4 Mg/2 Ml Vial) 4 mg IVP Q6HR PRN PRN Reason: Nausea / Vomiting Sodium Chloride (Sodium Chloride Flush 0.9% 10 Ml Syringe) 10 ml IVP PRN PRN PRN Reason: NEEDED PER PROVIDER ORDERS Last Admin: 01/31/23 06:02 Dose: 10 ml Sodium Chloride (Sodium Chloride Flush 0.9% 10 Ml Syringe) 10 ml IVP 0100,0900,1700 [facility] Last Admin: 01/31/23 08:36 Dose: 10 ml Bimatoprost 0.01% Ophth Dops [Lumigan 0.01% Ophth Drops] 1 drops EACHEYE DAILY 09/25/21 Brimonidine 0.15% Ophth Drops [Alphagan P 0.15% Ophth Drops] 1 drops OPTH BID 09/25/21 Lisinopril [Zestril] 10 mg PO BID 09/25/21 Apixaban [Eliquis] 0 mg PO BID 11/18/22 Gabapentin [Neurontin] 300 mg PO HS 11/18/22 Nitroglycerin [Nitrostat] 0.4 mg SL ONCE 11/18/22 dilTIAZem HCL [Diltiazem 24Hr ER (LA)] 120 mg PO DAILY 11/18/22 Exam: Temperature 36.6, heart rate 79, blood pressure 149/77, respirations 17, 96% room air Shotty neck adenopathy Barrel chest with clear lungs Regular rate and rhythm Belly is much less distended than yesterday. Soft. Easily reducible, small umbilical hernia that is ballotable. Not the source of his pain. Hypoactive bowel sounds. Tender in the epigastric area between xiphoid and umbilicus but no rebound or guarding. Extremities without edema Alert and oriented to person, place, time and situation Lab: Laboratory Tests 01/31/23 01/31/23 01/31/23 04:53 04:53 04:53 WBC 7.9 Hgb 13.0 L Hct 38.4 L Plt Count 201 Sodium 137 Potassium 4.0 Chloride 106 Carbon Dioxide 27 Anion Gap 4.0 L BUN 9 Creatinine 0.9 Estimated GFR (MDRD) 82 L Glucose 84 Phosphorus 3.2 L Magnesium 1.8 Conclusion/Plan - Problem List (1) Partial small bowel obstruction Conclusion/Plan: CAT scan does not show any evidence of tumor or enteritis. There is a vague transition point. Not well identified. He does not have a fever but he does have an elevated white cell count. At this time general surgery feels that expectant management is in order. Previous surgical history is that of a simple hernia repair. No other major surgeries. He does have a reducible umbilical hernia, small. Today Gen Surg has ordered a gastrograffin challenge. Plan: change OBV status to Inpatient IV fluids at 100 cc an hour Zofran OTD and IV as needed Morphine 2 mg every 2 hours as needed for pain Gastrograffin today Daily BMP and CBC. No antibiotics at this time (2) Chronic atrial fibrillation Conclusion/Plan: He is rate controlled in the 70s. He is also anticoagulated. He is going to be n.p.o. On Lovenox 80 mg SQ twice daily On Cardizem 5 mg IV push 3 times daily. To be held for a pulse less than 60 Resume his oral Cardizem and Eliquis when he is able to take p.o. (3) Hypertension Conclusion/Plan: Blood pressure currently stable. Controlled. Systolic is 137, 149. I am resuming the Cardizem but I will do it IV push to rate control. With this I think his blood pressures stay controlled. Qualifiers: Hypertension type: primary hypertension Qualified Code(s): I10 - Essential (primary) hypertension
[2023-01-31] MEDS ORDERED: DIATR MEGLU/DIATRIZOATE SODIUM 120 ML BOTTLE PO ONE (10:31)
--- NOTE | 2023-01-31 14:19 | XRAY Report ---
PROCEDURE: SBFT Challenge Panel INDICATIONS: SBO vs ileus COMPARISON: CT dated CONTRAST: Oral contrast FLUOROSCOPY TIME: 0 FINDINGS: Mildly distended small bowel loops are present. There is contrast passage to the colon. IMPRESSION: Partial small bowel obstruction. Reviewed by: Etelvina Rivera MD on 01/31/2023 2:17 PM PDT Approved by: Etelvina Rivera MD on 01/31/2023 2:17 PM PDT Station ID: [id number]
--- NOTE | 2023-01-31 14:48 | PHARMACY PROGRESS NOTE ---
- Best Possible Medication History Admit Date and Time: 01/31/23 1035 Processed by: Pharmacy Medication History completed: Yes Patient Interview: Completed Secondary Source(s): Spouse/Significant other As the person ultimately responsible for medication therapy, providers are able to order a medication from an existing home medication list in [facility] via the "Reconcile Routine" prior to Confirmation of that medication by desktop support consultant. Such practice is discouraged except when the physician, in their clinical judgment, deems that a medical need exists for a medication without regard to previous use.
[2023-01-31] MEDS ORDERED: ONDANSETRON 4 MG/2 ML VIAL IVP PRN (16:59)
--- NOTE | 2023-01-31 17:06 | PROVIDER PROGRESS NOTE ---
Progress Note General Surgery Progress Note Christophe tolerated the SBFT challenge and has passed 3-4 loose bowel motions. His abdomen is soft and non-tender. His cramping is much less. The NGT has been clamped for 2 hours and there has been no nausea or emesis. Two hours after administration, the GG contrast was in the colon. Mg normal; Phos just below normal and should correct with oral intake. Assessment: Ileus - resolved Plan: DC NGT, CL diet, resume home meds, advance to general diet for breakfast as tolerated, ambulate with assistance. Jesse Moore MD General Surgery Service [phone]
[2023-01-31] MEDS: APIXABAN 5 MG TABLET PO SCH (20:34)
[2023-02-01] MEDS: diltiaZEM INJ 5 MG/ML VIAL IVP SCH ×2 (05:35→13:22)
[2023-02-01] MEDS: SODIUM CHLORIDE 0.9% 1,000 ML IV SCH (05:39)
[2023-02-01 06:19] LABS: BASOPHILS % (AUTO) 0.3 %; EOSINOPHILS # (AUTO) 0.1 10^3/uL (0.0-0.7); EOSINOPHILS % (AUTO) 1.9 %; HCT - HEMATOCRIT 38.5 % (42.0-52.0); HGB - HEMOGLOBIN 13.2 g/dL (14.0-18.0); LYMPHOCYTES # (AUTO) 1.2 10^3/uL (1.5-3.5); LYMPHOCYTES % (AUTO) 16.5 %; MEAN CORPUSCULAR HEMOGLOBIN 31.1 pg (27.0-31.0); MEAN CORPUSCULAR HGB CONC 34.3 g/dL (32.0-36.0); MEAN CORPUSCULAR VOLUME 90.6 fL (80.0-94.0); MEAN PLATELET VOLUME 9.4 fL (7.4-11.4); MONOCYTES # (AUTO) 0.6 10^3/uL (0.0-1.0); MONOCYTES % (AUTO) 8.8 %; NEUTROPHILS % (AUTO) 72.4 %; PLT - PLATELET COUNT 201 10^3/uL (130-450); RED BLOOD COUNT 4.25 10^6/uL (4.70-6.10); RED CELL DISTRIBUTION WIDTH 12.3 % (12.0-15.0)
[2023-02-01 06:36] LABS: CALCIUM 8.6 mg/dL (8.5-10.3); CREATININE 0.8 mg/dL (0.6-1.3); POTASSIUM 3.5 mmol/L (3.5-4.5)
--- NOTE | 2023-02-01 06:47 | PROVIDER PROGRESS NOTE ---
Progress Note General Surgery Morning Rounds Note Hospital Day 3 Assessment: 1) Ileus - resolved Plan: 1) ADAT 2) Discharge to home when tolerating PO well S: No nausea or vomiting with NGT removal; Continues to pass stool and flatus from rectum. O: VSS; Abdomen - soft, not distended, no tenderness Pain Level: 0 Labs: K 3.5; Cr 0.8; WBC 7k; H&H 13.2/38.5 Memo Moore MD, FACS General Surgery Service [phone]
[2023-02-01] MEDS ORDERED: BRIMONIDINE 0.2% OPHTH DROPS 5 ML EACHEYE SCH (09:00)
[2023-02-01] MEDS: SODIUM CHLORIDE FLUSH 0.9% 10 ML SYRINGE IVP SCH ×2 (09:14)
[2023-02-01] MEDS: APIXABAN 5 MG TABLET PO SCH (09:14)
--- NOTE | 2023-02-01 09:23 | Discharge Plan ---
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 It is really impacted your ability to move quickly and affects your left leg. Over the last few weeks you have had occasional episodes of diarrhea. Increasing bloating of your abdominal area. No pain. But then a few days before coming to the emergency room you had severe progress herbert distention, increasing abdominal discomfort. You could not take it anymore and came to the emergency room and we found you to have a partial small bowel obstruction. Small bowel obstructions are caused by many things. The most common cause is previous abdominal surgery resulting in adhesions and scar tissue. You could have had surgery 30 years ago and you have an obstruction later. The second most common cause is tumor. Third most common causes something called volvulus when the bowel doubles back on itself. We think your problem is adhesions from a previous hernia repair. You do have a small bellybutton hernia that is easily reducible and we do not think that is causing your problem now. We rested your bowel. Suctioned out the air and liquid in your stomach to reduce compression and pain. The small bowel obstruction resolved without surgical intervention. We started you on clear liquids and then advance your diet. Today you have kept your food down, no distention, and you are still having bowel movements and flatus. We feel you are stable to go home. You plan on traveling to [place] this week. Plan of Treatment: 1. Please see your primary care provider in follow-up. It may be logistically difficult since you are getting ready to go to [place]. Nevertheless, call her office which is [phone] and let them know you are in the hospital. At least she can make a follow-up appointment when you get back from [place]. 2. We do encourage you to resume a normal diet but try and make it a low residue diet. In other words a low fiber diet. 3. If you do end up getting your bellybutton hernia fixed, see if the surgeon can also do a laparoscopic "lysis of adhesion" at the same time to see if there is any scar tissue that can be cut so that you do not have recurrence of her small bowel obstruction. Care Goals: Currently, your care goal centers around being able to get to [place] for this family event and then back safely. Assessment: Patient is alert, sometimes confused, but is always at the bedside, his advocate. Between the 2 of them they will follow through with his appointments, and diet No Smoking: If you smoke, Please STOP! Call for help. Follow-up with: Ayla Self MD [Primary Care Provider] -
[2023-02-01] MEDS ORDERED: LATANOPROST 0.005% OPHTH DROPS EACHEYE SCH (10:00)
--- NOTE | 2023-02-01 10:01 | DISCHARGE SUMMARY ---
Discharge Summary Admit Date: 01/30/23 Discharge Date: 02/01/23 Discharging Provider: Sis Montenegro MD Primary Care Provider: Ayla Self MD Code Status: Attempt Resuscitation Condition at Discharge: Fair Discharge Disposition: 01 Home, Self Care - DIAGNOSES Discharge Diagnoses with Status of Each Condition: 1. Partial small bowel obstruction 2. Chronic atrial fibrillation 3. Chronically anticoagulated 4. Hypertension 5. Cognitive deficits, mild 6. Chronic left leg weakness - HPI History of Present Illness: 77-year-old white male whose only past surgical history is that of a inguinal hernia repair when he was a child. Presents with less than a week of increasing abdominal pain, distention, nausea, anorexia. He is still passing gas, had a bowel movement yesterday. Last food was last night but he is eating less and less. He thought he just had a bug/stomach flu. When he was not getting any better he decided to come to the hospital. He denies chest pain, palpitations, shortness of breath. He denies fever, diaphoresis. No urgency, frequency, hematuria. No previous history of prostate problems or urinary obstruction. He does say that prior to this 4 days, however, he has been having diarrhea on a daily basis. Came from out of nowhere. He has had 2 previous colonoscopies. No polyps. He and his thought that it was either the flu bug or a diverticulosis issue and he had been changing to a bland diet and it was not working. No blood in the diarrhea.No weight changes, no change in appetite. In the emergency room temperature was 36.9. Heart rate 76. Blood pressure 124/78. Respirations 18. 96% on room air. He was an alert oriented white male. He is ambulating. Exam has him with a distended abdomen, hypoactive bowel sounds. Diffuse tenderness. CT of the abdomen and pelvis had a distended stomach with fluid and air. The duodenum, jejunum and ileum were also distended with air-fluid levels consistent with partial small bowel obstruction. Transition point indeterminate but likely distal. Large bowel was normal with diverticulosis in the sigmoid colon. No diverticulitis, no free air or free fluid. No adenopathy. Sodium is 132 otherwise CMP was normal. White cell count slightly elevated 11.5 with a hemoglobin of 13.9. He has no other previous CBCs to compare to. The ER provider discussed the case with general surgery, Dr. Amaya. He feels that this most likely will resolve without surgical intervention. He would like an NG placed, and the patient admitted to my service and he will consult. In discussing this with the ER provider I feel that is an appropriate request. And as such I will place the patient in observation. It is a partial small bowel obstruction in that he still passing gas, and no vomiting. He is followed by the [facility], Ayla Self MD who is in [place]. [employer] is Joe Bardales for his chronic atrial fibrillation. And he sees a Dr. Longoria, [facility] neurolog[facility] in [place] for postpolio syndrome symptoms. His postpolio symptoms consist of difficulty bringing up his left leg. Lifelong history of feeling like there is "a ashwini" shoved down his leg. Loss of balance. He has been losing functional mobility slowly but surely over the last few years. He starts panting now with prolonged physical exertion. He and his are trying to get his endurance up and they are up to 21 minutes with using a quad cane of nonstop movement. Nonstop movement could be anything such as standing, or walking in the house, or going to the grocery store. He is still able to feed himself, dress himself. He still drives a car since his right foot is unaffected. The only thing that is bothering him today is speech. He says that he can hear me, understand exactly what I am saying, but then processing it and getting it out of his mouth is difficult. He can see the word he wants to say, he could even write it down, but it comes out of his mouth the wrong way. - CONSULTS | PROCEDURES Consultations: General surgery: Dr. Amaya and Dr. Moore Procedures: 1. Abdomen/pelvis CT scan with a distended stomach with fluid and air. His duodenum, jejunum, and ileum are also dilated with air-fluid levels consistent with bowel obstruction. Transition point indeterminate but likely distal. The large bowel had normal caliber with diverticulosis but no evidence of diverticulitis. No free air or free fluid. 1 gallstone but no evidence of ch olecystitis. Kidneys did not have any hydronephrosis and bladder was retracted due to Dasilva 2. Gastrografin challenge showed some mildly distended small bowel loops at the beginning of the challenge. Within 4 hours there was contrast in the rectum and he was having stool and flatus. - HOSPITAL COURSE Hospital Course: (1) Partial small bowel obstruction Conclusion/Plan: General surgery recommended expectant management. Family wondered if his umbilical hernia had anything to do with this and I felt like it did not. It was easily reducible and quite small. They asked if his hernia could be fixed. I told him that it certainly could but not at this time. Usually hernias are fixed if they are symptomatic. If they do fix his hernia, they asked if he could then have a procedure done to take care of any adhesions he may have causing this partial bowel obstruction. I said that is something they could discuss with the surgeon at that time. He underwent a Gastrografin challenge. Excellent results with liquid stool and flatus. Tolerated full liquid diet and then a low residue diet. Very anxious to go home. He has a trip planned for [place] this Wednesday (today is Wednesday). already has requested help from the airlines. He will get a wheelchair to the [facility]. Help onto the plane. And the same in [place]. In the same back. He had no fever during his stay. And white cell count remain normal. He did not need antibiotics. (2) Chronic atrial fibrillation Conclusion/Plan: His rate was controlled. He remained anticoagulated with therapeutic Lovenox. At discharge BMP was normal, and CBC was normal except for a mild anemia of a hemoglobin of 13.2 with an MCV of 90. Heart rate at discharge was 86. He will be resumed on his usual home medicines of Eliquis and diltiazem. (3) Hypertension Conclusion/Plan: Blood pressure was stable, controlled during his stay. When he was able to take p.o. his Cardizem was resumed. When he goes home he will be resumed on his lisinopril and Cardizem. Discharge exam had a temperature of 36.7. Heart rate 86 and irregular. Blood pressure 151/61. This is only on his Cardizem. He could certainly resume his lisinopril. Neck is supple. Lungs are clear to auscultation and percussion without tachypnea or respiratory problems. An irregular rate and rhythm in the 70s and 80s. And abdomen that soft, nondistended. Nontender. Numerous liquid bowel movements yesterday, none this morning. Is passing gas. Extremities without edema. At 77 he is appearing older than stated age. Appears to have some cognitive decline but says that it is recent, and associated with this illness. She expects him to go back to baseline soon. 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 Greater than 30 minutes was spent coordinating discharge. I have asked him to see his primary care provider in follow-up but I think it would be logistically quite difficult since he is leaving for [place] on Wednesday. I asked him to at least check in with her office to make an appointment for a couple of days after he gets back from [place]. I have also emphasized he needs to be on a low residue diet. Dietary will be meeting with them before discharge. And have also sent him home with some Vanesa information on low residue diet This document was made in part using voice recognition software. While efforts are made to proofread this document, sound alike and grammatical errors may occur. - ALLERGIES Allergies/Adverse Reactions: Allergies Allergy/AdvReac Type Severity Reaction Status Date / Time [id number] Reductase AdvReac Unknown Verified 09/25/21 11:25 Inhibitor - MEDICATIONS Home Medications: Ambulatory Orders Medication Instructions Recorded Confirmed Bimatoprost 0.01% Ophth Dops 1 drops EACHEYE HS 09/25/21 01/31/23 [Lumigan 0.01% Ophth Drops] Brimonidine 0.15% Ophth Drops 1 drops OPTH BID 09/25/21 01/31/23 [Alphagan P 0.15% Ophth Drops] Lisinopril [Zestril] 10 mg PO BID 09/25/21 01/31/23 Apixaban [Eliquis] 5 mg PO BID 11/18/22 01/31/23 Gabapentin [Neurontin] 300 mg PO HS 11/18/22 01/31/23 Nitroglycerin [Nitrostat] 0.4 mg SL ONCE PRN 11/18/22 01/31/23 dilTIAZem HCL [Diltiazem 24Hr ER 120 mg PO DAILY 11/18/22 01/31/23 (LA)] - LABS Result Diagrams: 02/01/23 06:12 02/01/23 06:12
[2023-02-01 14:46] VITALS: BP 155/85
== END 2023-02-01 14:45 | disposition home or self-care (01) | DRG 389 ==
LOC: EDUNIT# → ED 10:29 → MS2 14:26 → OBSVTOIN 01-31 10:35
PROVIDERS: ADMIT Specialist; ATTEND Specialist
DX: K56.600 Partial intestinal obstruction, unspecified as to cause (principal); I48.20 Chronic atrial fibrillation, unspecified; Z79.01 Long term (current) use of anticoagulants; I10 Essential (primary) hypertension; R47.89 Other speech disturbances; G31.84 Mild cognitive impairment of uncertain or unknown etiology; Z87.891 Personal history of nicotine dependence; R29.898 Other symptoms and signs involving the musculoskeletal system; G14 Postpolio syndrome; K57.30 Diverticulosis of large intestine without perforation or abscess without bleeding; K42.9 Umbilical hernia without obstruction or gangrene
CPT/HCPCS: 36415; 43753; 74177; 74250; 80048; 80053; 81003; 83690; 83735; 84100; 84484; 85025; 93005; 96372; 96374; 96375; 96376; 99285; A9270; G0378; J0131; J1650; J2060; Q9963; Q9967; 81001; 87086

== ENCOUNTER 2023-06-01 08:00 | Outpatient (CLI) | payer MEDICARE, BC, OTHER ==
--- NOTE | 2023-06-01 16:32 | XRAY Report ---
PROCEDURE: Knee 4 View LT INDICATIONS: LEFT KNEE PAIN TECHNIQUE: 4 views of the knee(s) were acquired. COMPARISON: None. FINDINGS: Bones: No fractures or dislocations. Tricompartment osteoarthritic changes of the bilateral knees wi th moderate medial joint space narrowing on the right and mild medial joint space narrowing on the le ft. Tricompartmental spurring is present. No suspicious bony lesions. Soft tissues: No knee joint effusion. No suspicious soft tissue calcifications or masses. Atheroscl erotic vascular calcifications. IMPRESSION: Tricompartmental osteoarthritic changes of the bilateral knees, moderate right and mild left. Reviewed by: Rah Honeycutt MD on 06/01/2023 4:31 PM PST Approved by: Rah Honeycutt MD on 06/01/2023 4:31 PM PST Station ID: [id number]
== END 2023-06-01 23:59 | disposition home or self-care (01) ==
LOC: DI.WOS 08:00
PROVIDERS: ATTEND Physician Assistant Surgical
DX: M17.0 Bilateral primary osteoarthritis of knee (principal)

== ENCOUNTER 2023-08-02 08:00 | Outpatient (CLI) | payer MEDICARE, BC, OTHER ==
--- NOTE | 2023-08-02 19:00 | XRAY Report ---
PROCEDURE: Hip 2 View LT INDICATIONS: LEFT HIP PAIN TECHNIQUE: 2 view(s) of the hip were acquired. COMPARISON: None FINDINGS: Bones: No fractures or dislocations. No suspicious bony lesions. The visualized pelvic ring appear s intact. Severe left hip joint space narrowing, subchondral sclerosis and cysts present. Inferior m arginal osteophyte and flattening of the femoral head Soft tissues: No suspicious soft tissue calcifications or masses. IMPRESSION: Advanced left hip osteoarthritis with remodeling Reviewed by: Bobby Heath MD on 08/02/2023 5:58 PM [place] Approved by: Bobby Heath MD on 08/02/2023 5:58 PM AKST Station ID: [id number]
== END 2023-08-02 23:59 | disposition home or self-care (01) ==
LOC: DI.WOS 08:00
PROVIDERS: ATTEND Physician Assistant Surgical
DX: M16.12 Unilateral primary osteoarthritis, left hip (principal)

== ENCOUNTER 2023-11-17 20:57 | Emergency (ER) | payer MEDICARE, BC, OTHER ==
--- NOTE | 2023-11-17 21:23 | ED Physician Documentation ---
PD HPI SYNCOPE - Stated complaint Stated Complaint: NEAR SYNCOPE - Chief complaint Chief Complaint: Neuro - History obtained from History obtained from: Patient, Family - Additional information Additional information: HPI from patient as well as patient's (who is in the ED at patient's bedside). Patient's was in an adjacent room at approximately 30 p.m. tonight when she heard "a crash" sound. She immediately went to check on the patient and found patient standing and appeared to be trying to open a door; although standing, she says he was leaning very far forward with bent knees such that one hand was nearly touching the ground. She says he then went to ground and she was able to help prevent him from falling. The patient does not recall this part of events, but he says he does recall falling, the timing of which is likely the cause of the noise his heard. Patient does not recall why he fell but denies prodrome; specifically, does not recall having lightheadedness, weakness, dizziness, sensation he might pass out. Patient's says that upon going to ground, she witnessed loss of consciousness which lasted approximately 10 seconds. Patient's medications include Eliquis (atrial fibrillation). Patient's says that after regaining consciousness, he was slow to answer questions and seemed unsure of many of his answers to her questions. At the time of this H&P, she says that he has improved regarding his mentation but has not quite gotten back to baseline (which is AAOx3, conversant, articulate, and answering questions rapidly and appropriately). Both patient and his deny any history in this patient of syncope. Patient denies having any pain anywhere. However, on review of systems, he then says he is experiencing some midline anterior chest pain which he has become aware of subsequent to tonight's episode (did not have any symptoms, including chest pain, prior to this event tonight). Review of Systems Eyes: reports: Reviewed and negative Cardiac: reports: Chest pain / pressure. denies: Palpitations, Pedal edema, Calf pain Respiratory: reports: Reviewed and negative GI: reports: Reviewed and negative Musculoskeletal: reports: Joint pain (left hip (chronic; has upcoming left hip surgery)). denies: Neck pain, Back pain, Extremity pain Neurologic: reports: Syncope, Altered mental status, Other (uncertain if head injury due to amnestic for some of tonight's events). denies: Generalized weakness, Focal weakness, Numbness, Seizure, Headache PD PAST MEDICAL HISTORY - Past Medical History Cardiovascular: Hypertension, Atrial fibrillation Respiratory: None Neuro: Other (Postpolio syndrome is felt to be the problem for his left leg) Endocrine/Autoimmune: None GI: None : None HEENT: Chronic vision loss, Glaucoma Psych: None Musculoskeletal: Osteoarthritis Derm: Eczema - Past Surgical History General: Colonoscopy, Other (Inguinal hernia repair as a child) HEENT: Cataracts, Tonsil/Adenoidectomy - Present Medications Home Medications: Ambulatory Orders Medication Instructions Recorded Confirmed Bimatoprost 0.01% Ophth Dops 1 drops EACHEYE HS 09/25/21 11/17/23 [Lumigan 0.01% Ophth Drops] Lisinopril [Zestril] 10 mg PO BID 09/25/21 11/17/23 Apixaban [Eliquis] 5 mg PO BID 11/18/22 11/17/23 Nitroglycerin [Nitrostat] 0.4 mg SL ONCE PRN 11/18/22 11/17/23 dilTIAZem HCL [Diltiazem 24Hr ER 120 mg PO DAILY 11/18/22 11/17/23 ([place])] Brimonidine 0.15% Ophth Drops 1 drops OPTH BID 11/17/23 11/17/23 [Alphagan P 0.15% Ophth Drops] Cholecalciferol [Vitamin D3] 25 mcg PO DAILY 11/17/23 11/17/23 Cyanocobalamin [Vitamin B-12] 100 mcg PO DAILY 11/17/23 11/17/23 Multivitamin [Theragran] 1 each PO DAILY 11/17/23 11/17/23 Sildenafil Citrate [Sildenafil] 2 - 5 tab PO PRN PRN 11/17/23 11/17/23 Ubidecarenone [Co Q-10] 100 mg PO DAILY 11/17/23 11/17/23 - Allergies Allergies/Adverse Reactions: Allergies Allergy/AdvReac Type Severity Reaction Status Date / Time [id number] Reductase AdvReac Unknown Verified 09/25/21 11:25 Inhibitor - Social History Does the pt smoke?: No Smoking Status: Never smoker - POLST Patient has POLST: No POLST Status: Full Code PD ED PE NORMAL - Vitals Vital signs reviewed: Yes - General General: Alert and oriented X 3, No acute distress, Well developed/nourished, Other (slow to answer some questions, amnestic for event. however, he is oriented x 3, follows commands, and answers are appropriate. 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 unable to test LLE due to left hip pain elicited with attempts (not new, per patient and )) Eye Opening: To Voice Motor: Obeys Commands Verbal: Oriented GCS Score: 14 PD ED PE EXPANDED - Cardiac Cardiac: Tachy, Irregularly irregular, Murmur Present (3/6 THONG greatest left 2nd ICS) Results - Vitals Vitals: Vital Signs - 24 hr 11/17/23 11/17/23 11/17/23 21:11 22:45 23:24 Temperature 37.1 C Heart Rate 140 H 132 H 145 H Respiratory 16 25 H 16 Rate Blood Pressure 103/66 116/92 H 120/88 H O2 Saturation 97 98 96 11/18/23 11/18/23 11/18/23 00:01 00:11 00:27 Temperature Heart Rate 144 H 110 H 107 H Respiratory 18 18 20 Rate Blood Pressure 121/83 H 132/85 H 130/89 H O2 Saturation 100 96 96 11/18/23 11/18/23 11/18/23 00:30 00:49 01:04 Temperature Heart Rate 108 H 90 90 Respiratory 19 18 16 Rate Blood Pressure 124/99 H 122/82 H 132/83 H O2 Saturation 96 96 95 Oxygen O2 Source Room air - EKG (time done) No standard instances EKG releavant findings:: EKG personally interpreted by author of this note. Relevant findings are: Rate: Rate (enter#) (118) Rhythm: Atrial fibrillation [place]: Normal Intervals: QRS normal Ischemia: Normal ST segments, Non specific changes - Labs Labs: Laboratory Tests 11/17/23 11/17/23 11/17/23 21:45 21:45 22:47 WBC 7.4 RBC 4.35 L Hgb 13.5 L Hct 41.1 L MCV 94.5 H MCH 31.0 MCHC 32.8 RDW 12.4 Plt Count 205 MPV 9.5 Neut # (Auto) 4.9 Lymph # (Auto) 1.9 [place] # (Auto) 0.5 Eos # (Auto) 0.1 Baso # (Auto) 0.0 Absolute Nucleated RBC 0.00 Nucleated RBC % 0.0 Sodium 139 Potassium 3.4 L Chloride 107 Carbon Dioxide 23 Anion Gap 9.0 BUN 9 Creatinine 1.1 Estimated GFR (MDRD) 65 L Glucose 108 H Calcium 9.1 Total Bilirubin 0.5 AST 17 ALT 14 Alkaline Phosphatase 57 Troponin I High Sens 8.4 Total Protein 6.4 Albumin 4.0 Globulin 2.4 Albumin/Globulin Ratio 1.7 Lipase 116 H Urine Color YELLOW Urine Clarity CLEAR Urine pH 6.0 Ur Specific [place] <=1.005 Urine Protein NEGATIVE Urine Glucose (UA) NEGATIVE Urine Ketones NEGATIVE Urine Occult Blood NEGATIVE Urine Nitrite NEGATIVE Urine Bilirubin NEGATIVE Urine Urobilinogen 0.2 (NORMAL) Ur Leukocyte Esterase NEGATIVE Ur Microscopic Review NOT INDICATED Urine Culture Comments NOT INDICATED - Rads (name of study) chest xray Relevant Findings:: Prelim report reviewed, See rad report CTA head/neck Relevant Findings:: Prelim report reviewed, See rad report PD Medical Decision Making - ED course Complexity details: reviewed results, re-evaluated patient, considered differential, d/w patient, d/w family ED course: very early in stay, patient exhibited rapid return to baseline mental status. no concerning/diagnostic findings on CBC, ER abdominal panel, UA. minimal hypokalemia noted (k 3.4). given possible head injury (patient says he fell, but does not recall if he hit his head or not) and medications include eliquis, CTH performed and there are no concerning findings on this study including no evidence of ICH. although his RLE exhibited only mild weakness, this was an unexpected finding (patient says he never has noted weakness of the RLE before); this raises possibility of fall due to leg weakness, which, in turn, could be symptom of CVA. While weakness limited to RLE would be quite atypical for CVA, CTA head and neck undertaken to investigate possible VP [employer]EARCH etiology; no concerning nor explicatory findings on these studies (bilateral ICA stenoses noted but less than 50%). patient was in [facility] for most of his ED stay. he had soft blood pressure readings (mostly 90s SBP although MAPs in 70s), with eventual modest improvement after total of 3 liters NS. the increased blood pressure readings allowed for IV lopressor 5mg x 3 doses, given to effect rate control. fortunately, after the third dose, he converter to NSR on monitor with normotensive BP readings and heart rate in 70s-80s. he is asymptomatic prior to d/c. results were reviewed with patient and his , return precautions discussed. he is given 25 meq potassium bicarbonate po for hypokalemia. Departure - Departure Disposition: 01 Home, Self Care Clinical Impression: Rapid atrial fibrillation, Hypokalemia Syncope Qualifiers: Syncope type: unspecified Qualified Code(s): R55 - Syncope and collapse Condition: Good Instructions: ED Afib, ED Potassium Deficiency, ED Fainting Unkn Cause Follow-Up: Ayla Self MD [Primary Care Provider] - Comments: There were no concerning findings on tonight's blood tests, although your potassium was slightly below the normal range. Because low potassium can contribute to cardiac rhythm problems, you were given a dose of oral potassium prior to discharge from the emergency department. There were no concerning findings on the CT scans of your head and neck; as we discussed, there was mild to moderate stenosis of your carotid arteries on both sides. Stenosis refers to a narrowing of an artery, but the stenosis on either side was less than 50% and thus this is an incidental/non-contributory finding (in other words, the extent of the stenosis would not cause nor contribute to the symptoms you experienced tonight). Notably, you are in a rapid atrial fibrillation rhythm tonight. The atrial fibrillation is apparently not new for you, and you are on appropriate medication (Eliquis) to help thin the blood in case the atrial fibrillation recurs and/or persist. It is possible that the particularly rapid rate resulted in low blood pressures at home, and low blood pressure can cause syncope, so this would be a possible cause of the episode tonight. Contact your primary care provider in the morning when the office opens to arrange for the next available appointment for reevaluation. I recommend that you do this even if you do not have recurrence of symptoms in the interim. Discharge Date/Time: 11/18/23 01:28
[2023-11-17] MEDS: SODIUM CHLORIDE 0.9% 1,000 ML IV STA ×2 (21:42→23:30)
[2023-11-17 21:51] LABS: BASOPHILS % (AUTO) 0.4 %; EOSINOPHILS # (AUTO) 0.1 10^3/uL (0.0-0.7); EOSINOPHILS % (AUTO) 1.2 %; HCT - HEMATOCRIT 41.1 % (42.0-52.0); HGB - HEMOGLOBIN 13.5 g/dL (14.0-18.0); LYMPHOCYTES # (AUTO) 1.9 10^3/uL (1.5-3.5); LYMPHOCYTES % (AUTO) 25.8 %; MEAN CORPUSCULAR HGB CONC 32.8 g/dL (32.0-36.0); MEAN CORPUSCULAR VOLUME 94.5 fL (80.0-94.0); MEAN PLATELET VOLUME 9.5 fL (7.4-11.4); MONOCYTES # (AUTO) 0.5 10^3/uL (0.0-1.0); MONOCYTES % (AUTO) 6.9 %; NEUTROPHILS # (AUTO) 4.9 10^3/uL (1.5-6.6); NEUTROPHILS % (AUTO) 65.6 %; PLT - PLATELET COUNT 205 10^3/uL (130-450); RED BLOOD COUNT 4.35 10^6/uL (4.70-6.10); RED CELL DISTRIBUTION WIDTH 12.4 % (12.0-15.0); WHITE BLOOD COUNT 7.4 x10^3/uL (4.8-10.8)
[2023-11-17] MEDS ORDERED: iohexoL-300 100 ML VIAL ONE (22:09)
[2023-11-17 22:11] LABS: TROPONIN I HIGH SENSITIVITY 8.4 ng/L (2.3-19.7)
[2023-11-17 22:13] LABS: ALBUMIN/GLOBULIN RATIO 1.7 (1.0-2.2); BILIRUBIN,TOTAL 0.5 mg/dL (0.2-1.0); CALCIUM 9.1 mg/dL (8.5-10.3); CREATININE 1.1 mg/dL (0.6-1.3); POTASSIUM 3.4 mmol/L (3.5-4.5); TOTAL PROTEIN 6.4 g/dL (6.4-8.9)
[2023-11-17] MEDS: iohexoL-300 100 ML VIAL IVP ONE (22:40)
--- NOTE | 2023-11-17 22:44 | XRAY Report ---
PROCEDURE: Chest 1V INDICATIONS: syncope TECHNIQUE: One view of the chest was acquired. COMPARISON: None. FINDINGS: Surgical changes and devices: None. Lungs and pleura: Low lung volumes. No focal consolidations, effusions, or pneumothorax. Mediastinum: Mediastinal contours appear normal. Heart size is normal. Bones and chest wall: No suspicious bony lesions. Overlying soft tissues appear unremarkable. IMPRESSION: No acute cardiopulmonary process. Reviewed by: Jacinta Mccord MD on 11/17/2023 10:43 PM PDT Approved by: Jacinta Mccord MD on 11/17/2023 10:43 PM PDT Station ID: [id number]
--- NOTE | 2023-11-17 22:48 | CT Report ---
PROCEDURE: Head WO INDICATIONS: fall, on eliquis TECHNIQUE: Noncontrast 4.5 mm thick angled axial sections acquired from the foramen magnum to the vertex. For r adiation dose reduction, the following was used: automated exposure control, adjustment of mA and/or kV according to patient size. COMPARISON: None. FINDINGS: Image quality: Excellent. CSF spaces: Basal cisterns are patent. No extra-axial fluid collections. Ventricles are normal in size and shape. Brain: No midline shift. No intracranial masses or hemorrhage. Voss-white matter interface is norm al. Age-related cerebral cortical volume loss and mild periventricular white matter hypodensities. Skull and face: Calvarium and visualized facial bones are intact, without suspicious lesions. Sinuses: Visualized sinuses and mastoids are clear. IMPRESSION: No CT evidence of acute intracranial trauma. No significant soft tissue injury or underlying fracture. Reviewed by: Jacinta Mccord MD on 11/17/2023 10:47 PM PDT Approved by: Jacinta Mccord MD on 11/17/2023 10:47 PM PDT Station ID: [id number]
[2023-11-17 22:52] LABS: BILIRUBIN,URINE NEGATIVE (NEGATIVE); GLUCOSE, URINE (UA) NEGATIVE (NEGATIVE); KETONES,URINE (UA) NEGATIVE (NEGATIVE); LEUKOCYTE ESTERASE, URINE NEGATIVE (NEGATIVE); NITRITE,URINE NEGATIVE (NEGATIVE); OCCULT BLOOD,URINE NEGATIVE (NEGATIVE); PROTEIN,URINE NEGATIVE (NEGATIVE); UROBILINOGEN,URINE 0.2 (NORMAL) E.U./dL (NORMAL)
[2023-11-17 22:56] LABS: CLARITY,URINE CLEAR (CLEAR)
--- NOTE | 2023-11-17 23:17 | CT Report ---
PROCEDURE: Angio Head/Neck INDICATIONS: fall, RLE weakness TECHNIQUE: After the administration of intravenous contrast, 1 mm thick sections acquired from the aortic arch t hrough the [place]. 3-dimensional ziicmwq-gtxgmruch-nmvnlrnpew (MIP) and/or volume renderin g reformats were acquired of the central intracranial vasculature and neck separately. For radiation dose reduction, the following was used: automated exposure control, adjustment of mA and/or kV acco rding to patient size. CONTRAST: OMNI 300, 80mls COMPARISON: None. FINDINGS: Image quality: Diagnostic. HEAD CT: CSF Spaces: Basal cisterns are patent. No extra-axial fluid collections. Ventricles are normal in size and shape. Brain: No significant abnormality is seen for scanning technique. Skull and face: Calvarium and visualized facial bones appear intact, without suspicious lesions. Sinuses: Visualized sinuses and mastoids are clear. HEAD CT ANGIOGRAPHY: Anterior circulation: Intracranial internal carotid arteries are normal in size and flow. The flow within the paired anterior cerebral arteries is normal and symmetric. The flow within the middle cer ebral arteries is normal and symmetric. The anterior communicating artery is seen. No aneurysms are seen. Posterior circulation: Visualized portions of the vertebral arteries demonstrate normal caliber, and join to form a normal appearing basilar artery. Flow within the posterior cerebral arteries is norm al and symmetric. No aneurysms are seen. NECK CT ANGIOGRAPHY: Carotid system: The great vessels demonstrate a conventional anatomy as they arise from the aortic a rch. The origins of the common carotid arteries appear patent. The common carotid arteries demonstr ate normal caliber and courses. Mild atherosclerotic plaque at the bifurcation regions causing mild r ight and moderate left ICA origin narrowing, both estimated less than 50%. The internal carotid arter ies demonstrate normal calibers and courses. Posterior circulation: The origins of the vertebral arteries are both moderately narrowed, the right due to calcific plaque in the left due to noncalcified plaque. The more superior extracranial portio ns of both vertebral arteries also demonstrate normal courses and calibers. They join to form a norm al appearing basilar artery. Soft tissues: Visualized neck soft tissues demonstrate no suspicious abnormalities. Bones: No suspicious bony lesions. Visualized cervical spine appears normally aligned. Multilevel moderate to severe degenerative disc disease, most severe at C5-6. IMPRESSION: No significant intracranial arterial abnormality is seen. No significant abnormality is seen within the arteries of the neck. Narrowing at the vertebral artery origins bilaterally. Mild to moderate bilateral ICA origin stenoses. The estimate of stenosis included in the report of the imaging study was calculated using the NASCET method Reviewed by: Jacinta Mccord MD on 11/17/2023 11:16 PM PDT Approved by: Jacinta Mccord MD on 11/17/2023 11:16 PM PDT Station ID: [id number]
[2023-11-18] MEDS: METOPROLOL 5 MG/5 ML VIAL IVP STA ×3 (00:02→00:31)
[2023-11-18 01:12] VITALS: BP 132/83; O2SAT 95
[2023-11-18] MEDS: POTASSIUM BICARB 25 MEQ TABLET PO STA (01:21)
== END 2023-11-18 01:28 | disposition home or self-care (01) ==
LOC: EDUNIT# → ED 20:57
DX: R55 Syncope and collapse (principal); I48.91 Unspecified atrial fibrillation; E87.6 Hypokalemia; R53.1 Weakness; I10 Essential (primary) hypertension; Z79.01 Long term (current) use of anticoagulants; Z79.899 Other long term (current) drug therapy
CPT/HCPCS: 36415; 70450; 70496; 70498; 71045; 80053; 81003; 83690; 84484; 85025; 93005; 96374; 99284; A9270; Q9967; 81001; 87086